=== PATIENT | male | born 1995 | race Caucasian/White ===

== ENCOUNTER 2019-02-01 12:44 | Emergency (ER) | payer OTHER ==
[2019-02-01 13:52] VITALS: BP 120/76
[2019-02-01] MEDS ORDERED: Famotidine TAB* 20 MG PO ONE (14:35)
[2019-02-01] MEDS ORDERED: predniSONE TAB* 20 MG PO ONE (14:35)
[2019-02-01] MEDS ORDERED: diPHENhydraMINE PO* 25 MG PO ONE (14:35)
--- NOTE | 2019-02-01 14:40 | UC ---
Skin Complaint HPI - HPI Summary HPI Summary: 23-year-old male comes in with a chief complaint of itching and rash on the left ankle and foot. This started just a couple of hours ago when right after he put on a sock that he had recently washed. He took off his socks put some ice on it which to help decrease the irritation and swelling. The area of the rash has not spread past the boundary of where the sock was. Or shortness of breath or difficulty breathing. - History of Current Complaint Chief Complaint: UCSkin Time Seen by Provider: 02/01/19 14:27 Stated Complaint: POS ALERGIC REACTION Pain Intensity: 3 - Allergy/Home Medications Allergies/Adverse Reactions: Allergies Allergy/AdvReac Type Severity Reaction Status Date / Time No Known Allergies Allergy Unverified 02/01/19 13:47 Home Medications: Home Medications Venlafaxine EXT RELEASE CAP* [Effexor Xr CAP*] 150 mg PO DAILY 02/01/19 [ History Confirmed 02/01/19] PMH/Surg Hx/FS Hx/Imm Hx Previously Healthy: Yes - Surgical History Surgical History: None - Family History Known Family History: Positive: None - Social History Alcohol Use: None Substance Use Type: None Smoking Status (MU): Never Smoked Tobacco Review of Systems All Other Systems Reviewed And Are Negative: Yes Constitutional: Positive: Negative Skin: Positive: Other - SEE HPI Eyes: Positive: Negative ENT: Positive: Negative Respiratory: Positive: Negative Cardiovascular: Positive: Negative Gastrointestinal: Positive: Negative Motor: Positive: Negative Neurovascular: Positive: Negative Musculoskeletal: Positive: Negative Neurological: Positive: Negative Psychological: Positive: Negative Is Patient Immunocompromised?: No Physical Exam Triage Information Reviewed: Yes Appearance: Well-Appearing, No Pain Distress, Well-Nourished Vital Signs: Initial Vital Signs Temp 98.2 F 02/01/19 13:48 Pulse 52 02/01/19 13:48 Resp 18 02/01/19 13:48 BP 120/76 02/01/19 13:48 Pulse Ox 99 02/01/19 13:48 Vital Signs Reviewed: Yes Eye Exam: Normal Eyes: Positive: Conjunctiva Clear ENT: Negative: Muffled voice, Hoarse voice Neck: Positive: Supple Respiratory: Positive: No respiratory distress Musculoskeletal: Positive: Strength Intact, ROM Intact Neurological: Positive: Alert Psychological: Positive: Age Appropriate Behavior Skin: Positive: Other - Left foot and ankle have blanching erythema but slightly raised. Ankle is full range of motion normal capillary refill. Normal sensation. Course/Dx - Course Course Of Treatment: Given the localized distribution as appears to be a contact dermatitis. We will treat with Benadryl Pepcid and steroids as needed. Patient's get reevaluated gets worse or is not improving. - Diagnoses Provider Diagnosis: Allergic reaction Discharge ED - Sign-Out/Discharge Documenting (check all that apply): Patient Departure All imaging exams completed and their final reports reviewed: No Studies - Discharge Plan Condition: Stable Disposition: HOME Prescriptions: Famotidine TAB* [Pepcid 20 MG TAB*] 20 mg PO BID PRN #8 tab PRN Reason: Allergy Symptoms methylPREDNISolone [Medrol Dosepak 4 MG*] 0 mg PO .SEE [employer]STRUCTION PRN #1 [id number] PRN Reason: Allergy Symptoms Patient Education Materials: Contact Dermatitis (ED) Referrals: [facility] [Outside] Additional Instructions: FOLLOW UP WITH YOUR DOCTOR IF NOT COMPLETELY IMPROVED. TAKE BENADRYL 50MG EVERY 6 HOURS NEEDED. TAKE PEPCID 20MG TWICE A DAY NEEDED. TAKE THE STEROID DIRECTED NEEDED. GET RECHECKED SOONER IF YOUR CONDITION WORSENS OR ANY QUESTIONS OR CONCERNS. - Billing Disposition and Condition Condition: STABLE Disposition: Home
== END 2019-02-01 14:45 | disposition home or self-care (01) ==
LOC: UCEAST 12:44
DX: T78.49XA Other allergy, initial encounter (principal); X58.XXXA Exposure to other specified factors, initial encounter; Y92.9 Unspecified place or not applicable
CPT/HCPCS: 99212; A9270-GY; G0463; J7512